=== PATIENT | male | born 1980 | race Caucasian/White ===

== ENCOUNTER 2016-12-10 15:33 | Emergency (ER) ==
[2016-12-10 15:39] VITALS: BP 148/75; TEMP 100.1; BMI 20.1
[2016-12-10] MEDS ORDERED: PROTONIX IV IVP STA (15:43)
[2016-12-10] MEDS ORDERED: SODIUM CHLORIDE 1,000 ML IV STA (15:43)
[2016-12-10] MEDS ORDERED: ZOFRAN 4 MG/2 ML IVP STA (15:47)
[2016-12-10] MEDS ORDERED: MORPHINE 2 MG/ML SYRINGE IVP STA (15:47)
[2016-12-10 15:53] LABS: OCCULT BLOOD INTERNAL QC 1 INTERNAL QC VALID; OCCULT BLOOD INTERNAL QC 2 INTERNAL QC VALID; OCCULT BLOOD INTERNAL QC 3 INTERNAL QC VALID; OCCULT BLOOD SAMPLE 1 POSITIVE (NEGATIVE); OCCULT BLOOD SAMPLE 2 NO SPECIMEN RECEIVED (NEGATIVE); OCCULT BLOOD SAMPLE 3 NO SPECIMEN RECEIVED (NEGATIVE)
[2016-12-10 15:54] LABS: BASOPHILS # (AUTO) 0.1 K/uL (0-0.2); BASOPHILS % (AUTO) 0.6 % (0.0-3.0); EOSINOPHILS # (AUTO) 0.4 K/ul (0.0-0.7); EOSINOPHILS % (AUTO) 3.9 % (0.0-7.0); HEMATOCRIT 42.7 % (42.0-52.0); HEMOGLOBIN 14.3 g/dl (14.0-18.0); IMMATURE GRANULOCYTE % (AUTO) 0.3 % (0.0-5.0); LYMPHOCYTES % (AUTO) 29.3 (10.0-50.0); MEAN CORPUSCULAR HEMOGLOBIN 28.8 pg (27.0-31.0); MEAN CORPUSCULAR HGB CONC 33.5 (31.8-35.4); MEAN CORPUSCULAR VOLUME 86.1 fl (80.0-94.0); MONOCYTES # (AUTO) 0.8 K/uL (0.4-2.0); MONOCYTES % (AUTO) 7.6 (0-10); NEUTROPHILS # (AUTO) 5.9 K/ul (2.0-6.9); NEUTROPHILS % (AUTO) 58.3; PLATELET COUNT 297 10^3/uL (140-440); RED BLOOD COUNT 4.96 10^6/ul (4.70-6.10); WHITE BLOOD COUNT 10.11 K/ul (4.2-10.2)
[2016-12-10 15:54] LABS: ADD URINE MICROSCOPIC YES; BILIRUBIN,URINE Negative (NEGATIVE); KETONES,URINE Trace (NEGATIVE); LEUKOCYTE ESTERASE ,URINE Negative (NEGATIVE); NITRITE,URINE Negative (NEGATIVE); PROTEIN,URINE Negative (NEGATIVE); URINE, BLOOD Negative (NEGATIVE)
[2016-12-10 16:15] LABS: ALBUMIN 3.6 g/dL (3.4-5.0); ALBUMIN/GLOBULIN RATIO 1.13; BILIRUBIN,TOTAL 0.16 mg/dL (0.00-1.20); BUN/CREATININE RATIO 11.34; CALCIUM 8.8 mg/dL (8.2-10.2); CREATININE 0.97 mg/dL (0.60-1.10); TOTAL PROTEIN 6.8 g/dL (6.4-8.2)
--- NOTE | 2016-12-10 16:29 | CT ---
EXAM: CT of the abdomen and pelvis without contrast. HISTORY: Abdominal pain. Melena. PROCEDURE: Contiguous axial CT images of the abdomen and pelvis without contrast with coronal and s agittal reformats. FINDINGS: The liver, gallbladder, pancreas, spleen, adrenal glands and right kidney are normal in ap pearance. There is a 0.2 cm nonobstructive calcification in the left kidney. The abdominal aorta is normal in appearance. The appendix is not definitely visualized. There is diverticulosis of the col on with no evidence of diverticulitis. There is fecal stasis in the colon. No free fluid or free ai r in the abdomen or pelvis. The bladder is minimally filled which limits the evaluation. The semina l vesicles and prostate gland are unremarkable. The bones and soft tissues are unremarkable. Impression: Diverticulosis of the colon without diverticulitis. Fecal stasis in the colon. Nonobstructive left nephrolithiasis as described.
--- NOTE | 2016-12-10 16:35 | ED.PDOC ---
General ED Provider: Dr. JOLLY LAM-ER Chief Complaint: Abdominal Pain Stated Complaint: imchelle been hurting and taking alleve --now im bleeding dark black blood Time Seen by Physician: 15:35 Mode of Arrival: Walk-In Information Source: Patient Exam Limitations: No limitations Nursing and Triage Documentation Reviewed and Agree: Yes GI Complaint Exam - GI Bleed Complaint/Exam Patient Complains of: Reports: Black stools Onset/Duration: several hours Symptoms Are: Still present Episodes Lasting: Hours Severity: Reports: Blood-streaked stool, Black tarry stool. Denies: Bright red blood-rectum, Coffee ground emesis, Hematemesis Location of Pain: Reports: Diffuse Aggravating: Reports: None Alleviating: Reports: None Associated Signs and Symptoms: Reports: Constipation. Denies: Back Pain, Pallor , Dizziness, Weakness, Syncope, Nausea, Rectal pain, Bruising, Weight loss, Recent abnormal coags GI Bleed Risk Factors: Reports: Liver Disease, NSAID use Recent Colonoscopy: No Recent EGD: No Abdominal Findings: Present: None Rectal Exam: Present: Melena Differential Diagnoses: Other Review of Systems - Review Of Systems Constitutional: Reports: No symptoms Eyes: Reports: No symptoms Ears, Nose, Mouth, Throat: Reports: No symptoms Respiratory: Reports: No symptoms Cardiac: Reports: No symptoms GI: Reports: Rectal bleeding : Reports: No symptoms Musculoskeletal: Reports: No symptoms Skin: Reports: No symptoms Neurological: Reports: No symptoms Endocrine: Reports: No symptoms Hematologic/Lymphatic: Reports: No symptoms All Other Systems: Reviewed and Negative Past Medical History - Past Medical History Previously Healthy: Yes Endocrine: Reports: Unknown Cardiovascular: Reports: Unknown Respiratory: Reports: Unknown Hematological: Reports: Unknown Gastrointestinal: Reports: Unknown Genitourinary: Reports: Unknown Neuro/Psych: Reports: Unknown Musculoskeletal: Reports: Unknown Cancer: Reports: Unknown - Surgical History General Surgical History: Reports: Unknown - Family History Family History: Reports: Unknown - Social History Smoking Status: Former smoker Hx Substance Use: No Alcohol Screening: None Lives: With family Physical Exam - Physical Exam Appearance: Well-appearing, No pain distress, Well-nourished Pain Distress: Mild Eyes: HOLLI, EOMI, Conjunctiva clear ENT: Ears normal Neck: Supple Respiratory: Airway patent Cardiovascular: RRR, Pulses normal, No rub, No murmur GI/: Soft, No masses, Tender Musculoskeletal: Normal strength Skin: Warm Neurological: Sensation intact, Motor intact, Reflexes intact, Cranial nerves intact, Alert, Oriented Psychiatric: Affect appropriate Interpretation - Radiology Interpretation Radiology Interpretation By: Radiologist Radiology Results: Positive Exam Interpreted: CT Scan ("constipation") Critical Care Note - Critical Care Note Total Time (mins): 0 Course - Course Hematology/Chemistry: 12/10/16 15:45 12/10/16 15:45 Orders, Labs, Meds: Lab Review 12/10/16 12/10/16 15:45 15:49 WBC 10.11 RBC 4.96 Hgb 14.3 Hct 42.7 MCV 86.1 MCH 28.8 MCHC 33.5 RDW Coeff of Cristiano 12.7 Plt Count 297 Immature Gran % (Auto) 0.3 Neut % (Auto) 58.3 Lymph % (Auto) 29.3 [place] % (Auto) 7.6 Eos % (Auto) 3.9 Baso % (Auto) 0.6 Immature Gran # (Auto) 0.0 Neut # 5.9 Lymph # 3.0 [place] # 0.8 Eos # 0.4 Baso # 0.1 Sodium 142 Potassium 4.0 Chloride 103 Carbon Dioxide 27 Anion Gap 16.0 BUN 11 Creatinine 0.97 Estimated GFR (MDRD) 87.00 BUN/Creatinine Ratio 11.34 Glucose 77 Calcium 8.8 Total Bilirubin 0.16 AST 24 ALT 41 Alkaline Phosphatase 88 Total Protein 6.8 Albumin 3.6 Globulin 3.2 Albumin/Globulin Ratio 1.13 Amylase 109 Lipase 70 Urine Color Yellow Urine Clarity Slightly Urine pH 7.0 Ur Specific [place] 1.020 Urine Protein Negative Urine Glucose (UA) Negative Urine Ketones Trace Urine Blood Negative Urine Nitrite Negative Urine Bilirubin Negative Urine Urobilinogen 0.2 Ur Leukocyte Esterase Negative Urine Microscopic WBC 0-2 Ur Squamous Epith Cells Not Reportable Amorphous Sediment 2+ Stl Occult Blood (IFOB) Positive Stool Occult Blood #2 No specimen received Stool Occult Blood #3 No specimen received Orders Category Date Time Status EKG-(ED ONLY) Stat CARDIO 12/10/16 15:43 Completed ED IV/MEDIPORT/POWERPORT .ONCE EMERGENCY 12/10/16 15:43 Active AMYLASE Stat LAB 12/10/16 15:45 Completed CBC W/ AUTO DIFF Stat LAB 12/10/16 15:45 Completed COMPREHENSIVE METABOLIC PANEL Stat LAB 12/10/16 15:45 Completed LIPASE Stat LAB 12/10/16 15:45 Completed OCCULT BLOOD, STOOL Stat LAB 12/10/16 15:49 Completed URINALYSIS C & S IF INDICATED Stat LAB 12/10/16 15:49 Completed 0.9 % Sodium Chloride [Saline Flush] MEDS 12/10/16 15:43 Active 1 syr IVF PRN PRN Morphine Sulfate [Morphine 2 mg/ml Syringe] MEDS 12/10/16 15:47 Discontinued 2 mg IVP ONCE STA Ondansetron HCl/Pf [Zofran 4 mg/2 ml] MEDS 12/10/16 15:47 Discontinued 4 mg IVP ONCE STA Pantoprazole Sodium [Protonix IV] MEDS 12/10/16 15:43 Discontinued 40 mg IVP ONCE STA Sodium Chloride 0.9% [Sodium Chloride] 1,000 ml MEDS 12/10/16 15:43 Active IV 100 mls/hr CT ABDOMEN/PELVIS WO CONTRAST Stat RADS 12/10/16 15:47 Completed Medications Generic Name Dose Route Start Last Admin Trade Name Freq PRN Reason Stop Dose Admin Sodium Chloride 1,000 mls @ 100 mls/hr 12/10/16 15:43 Sodium Chloride IV 12/11/16 01:42 .Q10H STA Sodium Chloride 1 syr 12/10/16 15:43 Saline Flush IVF PRN PRN To flush IV Discontinued Medications Generic Name Dose Route Start Last Admin Trade Name Freq PRN Reason Stop Dose Admin Morphine Sulfate 2 mg 12/10/16 15:47 Morphine 2 Mg/Ml Syringe IVP 12/10/16 15:48 ONCE STA Ondansetron HCl 4 mg 12/10/16 15:47 Zofran 4 Mg/2 Ml IVP 12/10/16 15:48 ONCE STA Pantoprazole Sodium 40 mg 12/10/16 15:43 Protonix Iv IVP 12/10/16 15:44 ONCE STA Vital Signs: Temp Pulse Resp BP Pulse Ox 12/10/16 15:33 100.1 F H 82 20 148/75 H 98 Departure - Departure Time of Disposition: 16:35 Disposition: TSF SHORT-TRM HOSP Discharge Problem: Gastrointestinal hemorrhage Qualifiers: GI bleed type/associated pathology: melena Qualifier Code: (K92.1) Melena Instructions: Gastrointestinal Bleeding (ED) Condition: Good Pt referred to PMD for follow-up: No Allergies/Adverse Reactions: Allergies No Known Allergies Allergy (Verified 12/10/16 15:41) Home Medications: Ambulatory Orders 1 [No Reported Medications] 01/25/14 Transfer Form Completed: Yes Disposition Discussed With: Patient
== END 2016-12-10 17:15 | disposition short-term general hospital (02) ==
LOC: ED 15:33
DX: K92.1 Melena (principal)
CPT/HCPCS: 36415; 80053; 81001; 82150; 82272; 83690; 85025; 93005; 93010; 96361; 96374; 96375; 99285

== ENCOUNTER 2016-12-10 17:15 | Outpatient (CLI) ==
[2016-12-10 15:39] VITALS: BMI 20.1
== END 2016-12-10 17:16 | disposition home or self-care (01) ==
LOC: AMBL 17:15
PROVIDERS: ATTEND Family Medicine
DX: R10.9 Unspecified abdominal pain (principal)

== ENCOUNTER 2017-07-20 11:32 | Emergency (ER) ==
[2017-07-20 11:37] VITALS: BP 138/87; TEMP 98.1; BMI 25.0
--- NOTE | 2017-07-20 11:59 | ED.PDOC ---
General ED Provider: Dr. NADEGE ESCALERA Chief Complaint: Tooth Problem Stated Complaint: denatl pain Time Seen by Physician: 11:40 (pain chronic worse today) Mode of Arrival: Walk-In Information Source: Patient Exam Limitations: No limitations Nursing and Triage Documentation Reviewed and Agree: Yes Reviewed sepsis parameters & appropriate labs ordered?: Yes System Inflammatory Response Syndrome: Not Applicable Sepsis Protocol: For patient's 13 years and over: Temp is 96.8 and below OR 101 and greater Pulse >90 BPM Resp >20/minute Acutely Altered Mental Status Are patient's symptoms suggestive of a new infection, such as: -Pneumonia -Skin, Soft Tissue -Endocarditis -UTI -Bone, Joint Infection -Implantable Device -Acute Abdominal Infection -Wound Infection -Meningitis -Blood Stream Catheter Infection -Unknown System Inflammatory Response Syndrome: Not Applicable EENT Complaint Exam - Throat Complaint/Exam Onset/Duration: 1 day duration in worsening of chronic pain Symptoms Are: Still present Initial Severity: Moderate Current Severity: Moderate Aggravating: Reports: None Alleviating: Reports: None Associated Signs and Symptoms: Denies: Fever, Dysphagia, Drooling, Foreign body sensation, Chills, Cough, Wheezing, Hoarseness, Sinus discomfort, Nasal congestion, Difficulty breathing, Lethargy, Irritability, Decreased activity, Vomiting, Diarrhea, Decreased hearing, Ear drainage Uvula Midline: Yes Kavita-tonsillar Fluctuence: No Scarlatinaform Rash Present: No Stridor Present: No Sinus Tenderness Present: No Tonsillar Hypertrophy Present: No Tonsillar Exudate Present: No Kavita-tonsillar Swelling Present: No Adenopathy Present: No Splenomegaly Present: No Review of Systems - Review Of Systems Constitutional: Reports: No symptoms Eyes: Reports: No symptoms Ears, Nose, Mouth, Throat: Reports: No symptoms Respiratory: Reports: No symptoms Cardiac: Reports: No symptoms GI: Reports: No symptoms : Reports: No symptoms Musculoskeletal: Reports: No symptoms Skin: Reports: No symptoms Neurological: Reports: No symptoms Endocrine: Reports: No symptoms Hematologic/Lymphatic: Reports: No symptoms All Other Systems: Reviewed and Negative Past Medical History - Past Medical History Previously Healthy: Yes Endocrine: Reports: Unknown Cardiovascular: Reports: Unknown Respiratory: Reports: Unknown Hematological: Reports: Unknown Gastrointestinal: Reports: Unknown Genitourinary: Reports: Unknown Neuro/Psych: Reports: Unknown Musculoskeletal: Reports: Unknown Cancer: Reports: Unknown - Surgical History General Surgical History: Reports: Unknown - Family History Family History: Reports: Unknown - Social History Smoking Status: Former smoker Hx Substance Use: No Alcohol Screening: None Physical Exam - Physical Exam Appearance: Well-appearing, No pain distress, Well-nourished Eyes: HOLLI, EOMI, Conjunctiva clear ENT: Ears normal, Nose normal, Oropharynx normal Respiratory: Airway patent, Breath sounds clear, Breath sounds equal, Respirations nonlabored Cardiovascular: RRR, Pulses normal, No rub, No murmur GI/: Soft, Nontender, No masses, Bowel sounds normal, No Organomegaly Musculoskeletal: Normal strength, ROM intact, No edema, No calf tenderness Skin: Warm, Dry, Normal color Neurological: Sensation intact, Motor intact, Reflexes intact, Cranial nerves intact, Alert, Oriented Psychiatric: Affect appropriate, Mood appropriate Critical Care Note - Critical Care Note Total Time (mins): 0 Course - Course Vital Signs: Temp Pulse Resp BP Pulse Ox 07/20/17 11:33 98.1 F 95 H 20 138/87 97 Departure - Departure Time of Disposition: 11:58 (bone spread dental decay number 16 has decay ) Disposition: HOME SELF-CARE Discharge Problem: Toothache Instructions: Toothache (ED) Condition: Good Pt referred to PMD for follow-up: Yes IPMP verified?: No Additional Instructions: Please call your Family Physician as soon as possible to schedule a follow-up appointment. Allergies/Adverse Reactions: Allergies No Known Allergies Allergy (Verified 07/20/17 11:38) Home Medications: Ambulatory Orders 1 [No Reported Medications] 01/25/14
== END 2017-07-20 12:03 | disposition home or self-care (01) ==
LOC: ED 11:32
DX: K08.89 Other specified disorders of teeth and supporting structures (principal); K02.7 Dental root caries
CPT/HCPCS: 99282

== ENCOUNTER 2018-06-14 15:21 | Emergency (ER) ==
[2018-06-14 15:25] VITALS: BP 140/85; TEMP 97.4; BMI 23.3
[2018-06-14] MEDS ORDERED: LIDOCAINE HCL 1% SDV SUBCUT STA (15:39)
--- NOTE | 2018-06-14 15:42 | ED.PDOC ---
General ED Provider: Dr. NADEGE ESCALERA Chief Complaint: Finger Laceration Stated Complaint: finger laceration Time Seen by Physician: 15:30 Mode of Arrival: Walk-In Information Source: Patient Exam Limitations: No limitations Nursing and Triage Documentation Reviewed and Agree: Yes Does patient meet sepsis criteria?: No System Inflammatory Response Syndrome: Not Applicable Sepsis Protocol: For patient's 13 years and over: Temp is 96.8 and below OR 101 and greater Pulse >90 BPM Resp >20/minute Acutely Altered Mental Status Are patient's symptoms suggestive of a new infection, such as: -Pneumonia -Skin, Soft Tissue -Endocarditis -UTI -Bone, Joint Infection -Implantable Device -Acute Abdominal Infection -Wound Infection -Meningitis -Blood Stream Catheter Infection -Unknown Musculoskeletal Complaint Exam - Hand/Wrist Complaint/Exam Location of Pain: Reports: Left, Digit #2 Mechanism of Injury: Reports: Trauma (sharp knife today) Onset/Duration: 1 hr ago see photos Symptoms Are: Still present Onset of Pain: Reports: Minutes Initial Severity: Mild Current Severity: Mild Location: Reports: Discrete Character: Reports: Aching Alleviating: Reports: Rest Aggravating: Reports: Movement Associated Signs and Symptoms: Denies: Swelling, Redness, Bruising, Fever, Weakness, Numbness, Tingling Dominant Hand: Right Related Surgical History: Reports: None Hand/Wrist Findings: Present: Laceration Differential Diagnoses: Other (laceration) Review of Systems - Review Of Systems Constitutional: Reports: No symptoms Eyes: Reports: No symptoms Ears, Nose, Mouth, Throat: Reports: No symptoms Respiratory: Reports: No symptoms Cardiac: Reports: No symptoms GI: Reports: No symptoms : Reports: No symptoms Musculoskeletal: Reports: No symptoms Skin: Reports: Other (laceration) Neurological: Reports: No symptoms Endocrine: Reports: No symptoms Hematologic/Lymphatic: Reports: No symptoms All Other Systems: Reviewed and Negative Past Medical History - Past Medical History Previously Healthy: Yes Endocrine: Reports: Unknown Cardiovascular: Reports: Unknown Respiratory: Reports: Unknown Hematological: Reports: Unknown Gastrointestinal: Reports: Unknown Genitourinary: Reports: Unknown Neuro/Psych: Reports: Unknown Musculoskeletal: Reports: Unknown Cancer: Reports: Unknown - Surgical History General Surgical History: Reports: Unknown - Family History Family History: Reports: Unknown - Social History Smoking Status: Former smoker Hx Substance Use: No Alcohol Screening: None - Immunizations Tetanus Shot up to Date: Yes (2 years ago) Physical Exam - Physical Exam Appearance: Well-appearing, No pain distress, Well-nourished Eyes: HOLLI, EOMI, Conjunctiva clear ENT: Ears normal, Nose normal, Oropharynx normal Respiratory: Airway patent, Breath sounds clear, Breath sounds equal, Respirations nonlabored Cardiovascular: RRR, Pulses normal, No rub, No murmur GI/: Soft, Nontender, No masses, Bowel sounds normal, No Organomegaly Musculoskeletal: Normal strength, ROM intact, No edema, No calf tenderness Skin: Warm, Dry (laceration left second finger ) Neurological: Sensation intact, Motor intact, Reflexes intact, Cranial nerves intact, Alert, Oriented Psychiatric: Affect appropriate, Mood appropriate Procedures - Laceration/Wound Repair No standard instances Wound Description: Linear Wound Length (cm): 1cm distal left second finger see photos Wound Width: 2mm Wound Depth: 1mm Wound Explored: Clean Wound Irrigated: No Wound Prep: Saline Anesthesia: Lidocaine (1 ml) Wound Debrided: Minimal Undermining: Minimal Wound Repaired With: Sutures Suture Size and Type: prolene Number of Sutures: 4 Number of [place]: 0 Layer Closure?: No Critical Care Note - Critical Care Note Total Time (mins): 0 Course - Course Orders, Labs, Meds: Orders Category Date Time Status Lidocaine HCl/Pf [Lidocaine HCl 1% Sdv] MEDS 06/14/18 15:39 Stat 5 ml SUBCUT ONCE STA Medications Generic Name Dose Route Start Last Admin Trade Name Freq PRN Reason Stop Dose Admin Lidocaine HCl 5 ml 06/14/18 15:39 Lidocaine Hcl 1% Sdv SUBCUT 06/14/18 15:40 ONCE STA Vital Signs: Temp Pulse Resp BP Pulse Ox 06/14/18 15:21 97.4 F L 100 H 18 140/85 99 Departure - Departure Time of Disposition: 15:41 Disposition: HOME SELF-CARE Discharge Problem: Laceration of finger Instructions: Laceration (ED) Condition: Good Pt referred to PMD for follow-up: Yes IPMP verified?: No Additional Instructions: Please call your Family Physician as soon as possible to schedule a follow-up appointment. Allergies/Adverse Reactions: Allergies No Known Allergies Allergy (Verified 06/14/18 15:25) Home Medications: Ambulatory Orders 1 [No Reported Medications] 06/14/18
== END 2018-06-14 16:22 | disposition home or self-care (01) ==
LOC: ED 15:21
DX: S61.211A Laceration without foreign body of left index finger without damage to nail, initial encounter (principal); W26.0XXA Contact with knife, initial encounter
CPT/HCPCS: 99283